=== PATIENT | male | born 1990 | race Caucasian/White ===

== ENCOUNTER 2016-11-29 12:42 | Emergency (ER) | payer MEDICARE ==
[~2016-11-29] VITALS: Ht 185.4 cm; Wt 76.0 kg
[~2016-11-29 12:42] MED LIST: NOHOMEMEDS
[2016-11-29 14:21] LABS: HEMATOCRIT 40.7 % (38.0-50.0); MCH 29.2 PG (29.0-34.0); MCHC 32.9 G/DL (30.0-36.0); MCV 88.7 FL (86-99); PLATELET COUNT 305 K/uL (156-360); RBC DIS.WIDTH-CV 11.9 % (11.8-14.6); RBC DIS.WIDTH-SD 38.2 % (39-53); RED BLOOD COUNT 4.59 M/uL (4.00-5.50); WHITE BLOOD COUNT 7.9 K/uL (4.1-10.2)
[2016-11-29 14:34] LABS: CHLORIDE 106 mEq/L (99-109); POTASSIUM 4.1 mEq/L (3.7-5.4); SODIUM 141 mEq/L (136-147)
[2016-11-29 14:35] LABS: GLUCOSE 85 mg/dL (70-99)
[2016-11-29 14:37] LABS: ANION GAP 10 MEQ/L (2-14)
[2016-11-29 14:39] LABS: GFR ESTIMATE (CALCULATED) > 59 mL/min/
[2016-11-29 14:40] LABS: UREA NITROGEN (BUN) 15 mg/dL (9-23)
[2016-11-29] MEDS ORDERED: OMEPRAZOLE40 M1 PO (14:58)
[2016-11-29 15:13] VITALS: BP 131/74
== END 2016-11-29 15:14 | disposition home or self-care (01) ==
LOC: RME 12:42 → EME 12:42 → RME 15:14
PROVIDERS: Physician Assistant
DX: K92.2 Gastrointestinal hemorrhage, unspecified (principal); F17.200 Nicotine dependence, unspecified, uncomplicated
CPT/HCPCS: 80048; 85027; 86900; 86901; 99281; 99284

== ENCOUNTER → 2017-01-26 | Outpatient (CLI) | payer MEDICARE ==
[~2017-01-26] MED LIST changes: +OMEPRAZOLE40 M1 PO
== END | disposition home or self-care (01) ==
LOC: AMB 09:20
PROC: 0DJD8ZZ Inspection of Lower Intestinal Tract, Via Natural or Artificial Opening Endoscopic (ICD-10-PCS; principal; 2017-01-26)
DX: K64.8 Other hemorrhoids (principal); K62.5 Hemorrhage of anus and rectum; R03.0 Elevated blood-pressure reading, without diagnosis of hypertension; F17.210 Nicotine dependence, cigarettes, uncomplicated
CPT/HCPCS: J2250; J3010

== ENCOUNTER 2017-02-13 11:04 | Inpatient (IN) | payer MEDICARE ==
[~2017-02-13] VITALS: Ht 185.4 cm; Wt 72.1 kg
[2017-02-13] VITALS (12 sets, daily range): BP systolic 118–141; BP diastolic 57–83
[2017-02-13 12:16] LABS: CHLORIDE 107 mEq/L (99-109); POTASSIUM 3.7 mEq/L (3.7-5.4); SODIUM 140 mEq/L (136-147)
[2017-02-13 12:17] LABS: GLUCOSE 90 mg/dL (70-99); HEMATOCRIT 16.1 % (38.0-50.0); MCH 23.1 PG (29.0-34.0); MCHC 30.4 G/DL (30.0-36.0); MCV 75.9 FL (86-99); MEAN PLAT.VOLUME 9.7 uM^3 (9.0-12.4); PLATELET COUNT 385 K/uL (156-360); RBC DIS.WIDTH-CV 14.6 % (11.8-14.6); RBC DIS.WIDTH-SD 41.4 % (39-53); RED BLOOD COUNT 2.12 M/uL (4.00-5.50); WHITE BLOOD COUNT 5.3 K/uL (4.1-10.2)
[2017-02-13 12:19] LABS: ANION GAP 12 MEQ/L (2-14)
[2017-02-13 12:21] LABS: GFR ESTIMATE (CALCULATED) > 59 mL/min/
[2017-02-13 12:22] LABS: UREA NITROGEN (BUN) 11 mg/dL (9-23)
[2017-02-13 13:47] LABS: HEMATOCRIT 14.7 % (38.0-50.0); MCH 22.8 PG (29.0-34.0); MCHC 29.9 G/DL (30.0-36.0); MCV 76.2 FL (86-99); MEAN PLAT.VOLUME 10.2 uM^3 (9.0-12.4); PLATELET COUNT 335 K/uL (156-360); RBC DIS.WIDTH-CV 14.7 % (11.8-14.6); RBC DIS.WIDTH-SD 40.9 % (39-53); RED BLOOD COUNT 1.93 M/uL (4.00-5.50); WHITE BLOOD COUNT 5.3 K/uL (4.1-10.2)
[2017-02-13] MEDS ORDERED: OMEPRAZOLE40 M1 PO (14:51)
[2017-02-13] MEDS ORDERED: EXCEDRIN MIGRA1 EAC3 PO (14:51)
[2017-02-14] VITALS (7 sets, daily range): BP systolic 110–131; BP diastolic 58–78
[2017-02-14 06:12] LABS: ALKALINE PHOSPHATASE 27 IU/L (3-129); ANION GAP 5 MEQ/L (2-14); CHLORIDE 113 MEQ/L (99-109); GFR ESTIMATE (CALCULATED) > 59 mL/min/; GLUCOSE 79 mg/dL (70-99); SAMPLE HEMOLYSIS CHECK 0; SAMPLE ICTERIC CHECK 0; SAMPLE LIPEMIA CHECK 0; SODIUM 140 MEQ/L (136-147); TOTAL BILIRUBIN 1.4 MG/DL (0.0-1.0); UREA NITROGEN (BUN) 10 mg/dL (9-23)
[2017-02-14 06:13] LABS: POTASSIUM 4.5 MEQ/L (3.7-5.4)
[2017-02-14 06:55] LABS: HEMATOCRIT 22.6 % (38.0-50.0); MCH 26.9 PG (29.0-34.0); MCHC 33.2 G/DL (30.0-36.0); MEAN PLAT.VOLUME 9.7 uM^3 (9.0-12.4); PLATELET COUNT 270 K/uL (156-360); RBC DIS.WIDTH-CV 15.3 % (11.8-14.6); RBC DIS.WIDTH-SD 45.6 % (39-53); WHITE BLOOD COUNT 4.5 K/uL (4.1-10.2)
[2017-02-14 07:05] LABS: RED BLOOD COUNT 2.79 M/uL (4.00-5.50)
[2017-02-14 21:47] LABS: HEMATOCRIT 28.4 % (38.0-50.0); MCV 81.8 FL (86-99)
[2017-02-15 04:46] VITALS: BP 103/54
[2017-02-15 05:51] LABS: ANION GAP 7 MEQ/L (2-14); CHLORIDE 111 MEQ/L (99-109); GFR ESTIMATE (CALCULATED) > 59 mL/min/; GLUCOSE 96 mg/dL (70-99); POTASSIUM 4.2 MEQ/L (3.7-5.4); SAMPLE HEMOLYSIS CHECK 0; SAMPLE ICTERIC CHECK 0; SAMPLE LIPEMIA CHECK 0; SODIUM 141 MEQ/L (136-147); UREA NITROGEN (BUN) 6 mg/dL (9-23)
[2017-02-15 07:30] LABS: HEMATOCRIT 25.2 % (38.0-50.0); MCV 81.8 FL (86-99)
[2017-02-15 09:02] VITALS: BP 116/74
[2017-02-15 11:28] VITALS: BP 130/75
[2017-02-15 13:00] LABS: HEMATOCRIT 25.5 % (38.0-50.0); MCH 27.1 PG (29.0-34.0); MCHC 33.3 G/DL (30.0-36.0); MCV 81.2 FL (86-99); PLATELET COUNT 305 K/uL (156-360); RBC DIS.WIDTH-CV 15.9 % (11.8-14.6); RBC DIS.WIDTH-SD 46.6 % (39-53); RED BLOOD COUNT 3.14 M/uL (4.00-5.50); WHITE BLOOD COUNT 9.4 K/uL (4.1-10.2)
[2017-02-15 16:42] VITALS: BP 126/67
[2017-02-15 19:18] VITALS: BP 119/67
[2017-02-16 00:03] VITALS: BP 134/72
[2017-02-16 05:13] VITALS: BP 108/63
[2017-02-16 07:51] VITALS: BP 122/62
[2017-02-16] MEDS ORDERED: DOCUSATE SODIU100 MG PO (08:48)
[2017-02-16] MEDS ORDERED: NUPERCAINAL,28.35 GM TP (08:48)
[2017-02-16] MEDS ORDERED: PERCOCET 5/31 TABLET PO (08:48)
== END 2017-02-16 10:50 | disposition home or self-care (01) | DRG 348 ==
LOC: EME 11:04 → EDOF 14:39 → 4EAST 14:39
PROVIDERS: Emergency Medicine; Hospitalist; Nurse Practitioner Adult Health; Physician Assistant; Surgery
PROC: 30233N1 Transfusion of Nonautologous Red Blood Cells into Peripheral Vein, Percutaneous Approach (ICD-10-PCS; 2017-02-13)
PROC: 06BY0ZC Excision of Hemorrhoidal Plexus, Open Approach (ICD-10-PCS; principal; 2017-02-14)
PROC: 0DJD8ZZ Inspection of Lower Intestinal Tract, Via Natural or Artificial Opening Endoscopic (ICD-10-PCS; 2017-02-14)
DX: K64.8 Other hemorrhoids (principal); D62 Acute posthemorrhagic anemia; K64.4 Residual hemorrhoidal skin tags; G43.909 Migraine, unspecified, not intractable, without status migrainosus; F17.200 Nicotine dependence, unspecified, uncomplicated; Z79.82 Long term (current) use of aspirin
CPT/HCPCS: 80048; 80053; 85014; 85018; 85027; 86900; 86901; 86920; 88304; 93005; 99281; 99285; J0330; J1100; J1170; J1335; J2250; J2405; J3010; J7030; J7120; P9016; S0020